=== PATIENT | male | born 2000 ===

== ENCOUNTER 2021-07-25 10:30 | Emergency (ER) | payer SELFPAY ==
[2021-07-25] MEDS ORDERED: Lidocaine 1% 10 ML MDV INJECT ONE (11:06)
== END 2021-07-25 11:50 | disposition home or self-care (01) ==
LOC: JD.ED 10:30
DX: S61.412A Laceration without foreign body of left hand, initial encounter (principal); W45.8XXA Other foreign body or object entering through skin, initial encounter
CPT/HCPCS: 12001; 99282-25